=== PATIENT | female | born 1950 | race Caucasian/White ===

== ENCOUNTER 2016-06-03 05:33 | Emergency (ER) | payer OTHER ==
[~2016-06-03] VITALS: Ht 170.2 cm; Wt 76.1 kg
[~2016-06-03 05:33] MED LIST: ALPRAZOLAM1 MG PO; AMLODIPINE BESY10 MG PO; AMOXICILLIN875 MG PO; ASPIR-LOW81 MG PO; Aspirin E.C. PO; COUMADIN,JANTOVE4 MG PO; COUMADIN2 MG PO; FLEXERIL10 MG PO; FOLIC ACID1 MG PO; INDERAL10 MG PO; MARTINIC1 EACH PO; MOBIC15 MG PO; NEURONTIN100 MG PO; NUCYNTA50 MG PO; PAROXETINE HCL10 MG PO; PREDNISONE10 MG PO; PROBIOTIC & AC1 EACH PO; PROTONIX40 MG PO; Proventil,Ventolin H IH; TRAMADOL HCL50 MG PO; VITAMIN D250000 UNIT PO; Wellbutrin PO; XANAX1 MG PO; ZOFRAN4 MG PO; Zithromax PO; predniSONE PO
[2016-06-03 06:26] LABS: HEMATOCRIT 40.5 % (36.0-46.0); MCH 31.1 PG (29.0-34.0); MCHC 33.1 G/DL (30.0-36.0); MEAN PLAT.VOLUME 10.3 uM^3 (9.5-12.4); PLATELET COUNT 199 K/uL (156-360); RBC DIS.WIDTH-CV 12.3 % (11.8-14.6); RBC DIS.WIDTH-SD 41.2 % (39-53); RED BLOOD COUNT 4.31 M/uL (3.80-5.20)
[2016-06-03 06:38] LABS: CHLORIDE 108 mEq/L (99-109); POTASSIUM 3.8 mEq/L (3.7-5.4); SODIUM 140 mEq/L (136-147)
[2016-06-03 06:40] LABS: GLUCOSE 97 mg/dL (70-99)
[2016-06-03 06:41] LABS: ANION GAP 10 MEQ/L (2-14)
[2016-06-03 06:42] LABS: TOTAL BILIRUBIN 0.5 mg/dL (0.0-1.0)
[2016-06-03 06:44] LABS: ALKALINE PHOSPHATASE 95 IU/L (3-129); GFR ESTIMATE (CALCULATED) > 59 mL/min/
[2016-06-03 06:45] LABS: UREA NITROGEN (BUN) 11 mg/dL (9-23)
[2016-06-03 06:49] LABS: TROP-I INTERPRETATION NEGATIVE; TROPONIN-I < 0.01 ng/mL (0.0-0.30)
[2016-06-03 07:31] VITALS: BP 127/69
== END 2016-06-03 07:32 | disposition home or self-care (01) ==
LOC: EME 05:33
PROVIDERS: Emergency Medicine
DX: S29.012A Strain of muscle and tendon of back wall of thorax, initial encounter (principal); S39.012A Strain of muscle, fascia and tendon of lower back, initial encounter; W18.30XA Fall on same level, unspecified, initial encounter; R25.1 Tremor, unspecified; R20.2 Paresthesia of skin; Z86.711 Personal history of pulmonary embolism; Z86.718 Personal history of other venous thrombosis and embolism; G89.29 Other chronic pain; F17.200 Nicotine dependence, unspecified, uncomplicated
CPT/HCPCS: 80053; 81003; 84484; 85027; 93005; 99281; 99284; J1885; J2405; J7030

== ENCOUNTER 2016-11-05 10:59 | Emergency (ER) | payer OTHER ==
[~2016-11-05] VITALS: Ht 170.2 cm; Wt 75.8 kg
[2016-11-05 12:02] LABS: EOSINOPHIL (%) 0.6 % (0-5); HEMATOCRIT 44.6 % (36.0-46.0); IMMATURE GRANULOCYTE (%) 0.3 % (0.0-0.7); INSTRUMENT ABS NEUTROPHIL CT 4.9 K/uL; LYMPHOCYTE COUNT 1.6 K/uL (1.0-2.8); MCH 30.5 PG (29.0-34.0); MCHC 33.2 G/DL (30.0-36.0); MCV 91.8 FL (83-99); MEAN PLAT.VOLUME 9.9 uM^3 (9.5-12.4); MONOCYTE (%) 8.1 % (3-12); MONOCYTE COUNT 0.6 K/uL (0-0.8); NEUTROPHIL (%) 68.6 % (45-76); NEUTROPHIL COUNT 4.9 K/uL (1.8-6.4); PLATELET COUNT 242 K/uL (156-360); RBC DIS.WIDTH-SD 40.3 % (39-53); RED BLOOD COUNT 4.86 M/uL (3.80-5.20); WHITE BLOOD COUNT 7.1 K/uL (4.1-10.2)
[2016-11-05 12:12] LABS: CHLORIDE 107 mEq/L (99-109); POTASSIUM 4.4 mEq/L (3.7-5.4); SODIUM 141 mEq/L (136-147)
[2016-11-05 12:14] LABS: GLUCOSE 108 mg/dL (70-99)
[2016-11-05 12:15] LABS: ANION GAP 10 MEQ/L (2-14)
[2016-11-05 12:17] LABS: SERUM ETHYL ALCOHOL < 10 mg/dL
[2016-11-05 12:18] LABS: GFR ESTIMATE (CALCULATED) > 59 mL/min/; UREA NITROGEN (BUN) 10 mg/dL (9-23)
[2016-11-05] MEDS ORDERED: XANAX0.5 MG PO (13:01)
[2016-11-05 13:05] LABS: ADD MIUA? YES; BILIRUBIN NEGATIVE; BLOOD LARGE; COLOR YELLOW ((YELLOW)); GLUCOSE (STRIP) NEGATIVE; KETONES 20; LEUKOCYTES NEGATIVE; NITRITE NEGATIVE; PROTEIN (STRIP) 100; SPECIFIC GRAVITY 1.018 (1.000-1.030); UROBILINOGEN 0.2 MG/DL (0.2-1.0)
[2016-11-05 13:28] LABS: BACTERIA NONE SEEN /HPF; EPITHELIAL CELLS 1+ /HPF; HYALINE CASTS 0-5 /LPF; MUCUS TRACE /LPF; WHITE BLOOD CELLS 0-5 /HPF (0-5)
[2016-11-05 13:37] LABS: AMPHETAMINE NEGATIVE (500 ng/mL); BARBITURATES NEGATIVE (200 ng/mL); BENZODIAZEPINES PRESUMPTIVE POSITIVE (150 ng/mL); COCAINE NEGATIVE (150 ng/mL); INTERNAL CONTROLS VALID? YES; METHADONE NEGATIVE (200 ng/mL); METHAMPHETAMINE NEGATIVE (500 ng/mL); OPIATES (MORPHINE) NEGATIVE (100 ng/mL); OXYCODONE NEGATIVE (100 ng/mL); PHENCYCLIDINE NEGATIVE (25 ng/mL); PROPOXYPHENE NEGATIVE (300 ng/mL); THC CANNABINOIDS NEGATIVE (50 ng/mL); TRICYCLIC ANTIDEPRESSANTS NEGATIVE (300 ng/mL)
[2016-11-05 13:38] LABS: ADD MEDTOX COMMENT Y
[2016-11-05 13:50] VITALS: BP 146/78
[2016-11-05 14:34] LABS: BENZODIAZEPINES, URINE SCREEN POSITIVE (200 ng/mL)
== END 2016-11-05 14:01 | disposition home or self-care (01) ==
LOC: EME 10:59
PROVIDERS: Emergency Medicine
DX: F41.9 Anxiety disorder, unspecified (principal); J45.909 Unspecified asthma, uncomplicated; F17.200 Nicotine dependence, unspecified, uncomplicated; Z88.1 Allergy status to other antibiotic agents; Z88.6 Allergy status to analgesic agent; Z88.2 Allergy status to sulfonamides; Z88.8 Allergy status to other drugs, medicaments and biological substances; Z88.5 Allergy status to narcotic agent
CPT/HCPCS: 80048; 81003; 84999; 85025; 99281; 99285; G0480

== ENCOUNTER 2016-11-07 12:45 | Emergency (ER) | payer OTHER ==
[~2016-11-07] VITALS: Ht 170.2 cm; Wt 71.8 kg
[~2016-11-07 12:45] MED LIST changes: +XANAX0.5 MG PO
[2016-11-07 12:58] VITALS: BP 151/78
[2016-11-07] MEDS ORDERED: XANAX1 MG PO (17:55)
[2016-11-07] MEDS ORDERED: NEURONTIN100 MG PO (18:13)
== END 2016-11-07 18:45 | disposition home or self-care (01) ==
LOC: EME 12:45
DX: F43.23 Adjustment disorder with mixed anxiety and depressed mood (principal); Z89.411 Acquired absence of right great toe; Z88.1 Allergy status to other antibiotic agents; Z88.2 Allergy status to sulfonamides; Z88.6 Allergy status to analgesic agent; F17.200 Nicotine dependence, unspecified, uncomplicated
CPT/HCPCS: 90839; 99281; 99284

== ENCOUNTER 2017-10-08 10:52 | Observation (INO) | payer OTHER ==
[~2017-10-08] VITALS: Ht 170.2 cm; Wt 85.4 kg
[2017-10-08 11:29] LABS: HEMOGLOBIN 13.6 G/DL (11.9-15.5); MCH 32.1 PG (29.0-34.0); MCV 94.3 FL (83-99); PLATELET COUNT 195 K/uL (156-360); RBC DIS.WIDTH-CV 12.4 % (11.8-14.6); RBC DIS.WIDTH-SD 42.6 % (39-53); RED BLOOD COUNT 4.24 M/uL (3.80-5.20)
[2017-10-08 11:39] LABS: ALBUMIN 3.7 g/dL (3.2-4.8); CHLORIDE 108 mEq/L (99-109); SODIUM 141 mEq/L (136-147)
[2017-10-08 11:42] LABS: GLUCOSE 96 mg/dL (70-99); TOTAL PROTEIN 6.3 g/dL (6.4-8.3)
[2017-10-08 11:43] LABS: TOTAL BILIRUBIN 0.6 mg/dL (0.0-1.0)
[2017-10-08 11:45] LABS: ALKALINE PHOSPHATASE 109 IU/L (3-129); CREATININE 0.7 mg/dL (0.6-1.3); GFR ESTIMATE (CALCULATED) > 59 mL/min/
[2017-10-08 11:46] LABS: UREA NITROGEN (BUN) 11 mg/dL (9-23)
[2017-10-08 11:47] LABS: AST (GOT) 14 IU/L (2-34); DIRECT BILIRUBIN 0.3 mg/dL (0.0-0.3)
[2017-10-08 11:48] LABS: ALT (GPT) 15 IU/L (3-49)
[2017-10-08 11:49] LABS: LIPASE 26 U/L (1.0-51.0)
[2017-10-08 11:51] LABS: TROP-I INTERPRETATION NEGATIVE; TROPONIN-I < 0.01 ng/mL (0.0-0.30)
[2017-10-08 13:38] LABS: APPEARANCE CLEAR ((CLEAR)); BILIRUBIN NEGATIVE; BLOOD MODERATE; COLOR STRAW ((YELLOW)); GLUCOSE (STRIP) NEGATIVE; KETONES NEGATIVE; LEUKOCYTES NEGATIVE; NITRITE NEGATIVE; PROTEIN (STRIP) NEGATIVE; SPECIFIC GRAVITY 1.014 (1.000-1.030); UROBILINOGEN 0.2 MG/DL (0.2-1.0)
[2017-10-08] MEDS ORDERED: B-121000 MC2 PO (13:41)
[2017-10-08] MEDS ORDERED: XARELTO20 MG PO (13:41)
[2017-10-08] MEDS ORDERED: VITAMIN D31000 UNI2 PO (13:41)
[2017-10-08 13:42] LABS: BACTERIA NONE SEEN /HPF; EPITHELIAL CELLS RARE /HPF; MUCUS NONE SEEN /LPF; RED BLOOD CELLS 0-5 /HPF (0-5); WHITE BLOOD CELLS 0-5 /HPF (0-5)
[2017-10-08] MEDS ORDERED: CALCITONIN-SAL3.8 ML ALT NARES (13:42)
[2017-10-08] MEDS ORDERED: FOLIC ACID0.4 MG PO (13:42)
[2017-10-08] MEDS ORDERED: ZANTAC150 MG PO (13:43)
[2017-10-08] MEDS ORDERED: PAXIL10 MG PO (13:43)
[2017-10-08 14:50] LABS: CREATINE KINASE 58 IU/L (1-294)
[2017-10-08 15:31] LABS: THYROTROPIN (TSH) 1.4 MIU/L (0.4-5.5)
[2017-10-08 16:11] VITALS: BP 163/70
[2017-10-08 16:19] LABS: TROP-I INTERPRETATION NEGATIVE; TROPONIN-I < 0.01 ng/mL (0.0-0.30)
[2017-10-08 16:26] LABS: BENZODIAZEPINES, URINE SCREEN POSITIVE (200 ng/mL)
[2017-10-08 19:00] VITALS: BP 120/55
[2017-10-08 20:14] LABS: TROP-I INTERPRETATION NEGATIVE; TROPONIN-I 0.01 ng/mL (0.0-0.30)
[2017-10-09] VITALS: BP 135/62
[2017-10-09 06:09] LABS: CHLORIDE 103 MEQ/L (99-109); CREATININE 0.8 MG/DL (0.6-1.3); GFR ESTIMATE (CALCULATED) > 59 mL/min/; GLUCOSE 101 mg/dL (70-99); POTASSIUM 3.9 MEQ/L (3.7-5.4); SODIUM 137 MEQ/L (136-147); UREA NITROGEN (BUN) 15 mg/dL (9-23)
[2017-10-09 07:34] VITALS: BP 113/56
[2017-10-09] MEDS ORDERED: IBUPROFEN600 MG PO (08:28)
[2017-10-09] MEDS ORDERED: DULCOLAX5 MG PO (08:28)
== END 2017-10-09 09:57 | disposition home or self-care (01) ==
LOC: EME 10:52 → EDOF 14:22 → 4SOUTH 14:22 → ENRESERV 14:23 → 4SOUTH 15:12 → ENPENDDIS 10-09 09:56 → 4SOUTH 10-09 09:57
PROVIDERS: Emergency Medicine; Physician Assistant
DX: R07.89 Other chest pain (principal); K59.00 Constipation, unspecified; G89.29 Other chronic pain; M54.9 Dorsalgia, unspecified; R60.0 Localized edema; I48.0 Paroxysmal atrial fibrillation; Z86.711 Personal history of pulmonary embolism; Z86.718 Personal history of other venous thrombosis and embolism; K21.9 Gastro-esophageal reflux disease without esophagitis; F41.9 Anxiety disorder, unspecified; F32.9 Major depressive disorder, single episode, unspecified; F17.210 Nicotine dependence, cigarettes, uncomplicated; Z79.01 Long term (current) use of anticoagulants; Z89.411 Acquired absence of right great toe; Z90.49 Acquired absence of other specified parts of digestive tract; Z90.710 Acquired absence of both cervix and uterus; Z88.2 Allergy status to sulfonamides; Z88.1 Allergy status to other antibiotic agents; Z88.5 Allergy status to narcotic agent; Z88.8 Allergy status to other drugs, medicaments and biological substances
CPT/HCPCS: 71045; 74177; 78582; 80048; 80076; 80306 90; 81003; 82550; 82550 91; 83605; 83690; 83880; 84443; 84484; 85027; 85379; 87040; 87086; 93005; 93971; 99281; 99285; A9540; A9567; G0378; J1650